=== PATIENT | female | born 1985 | race Two or more races ===

== ENCOUNTER 2016-11-02 16:24 | Emergency (ER) | payer BC ==
[~2016-11-02] VITALS: Ht 175.3 cm; Wt 81.6 kg
[2016-11-02] MEDS ORDERED: HYDROCODONE/APAP 5/325MG 1 EACH TABLET ONE (17:57)
[2016-11-02] MEDS ORDERED: HYDROCODONE/APAP 5/325MG 1 EACH TABLET PO ONE (18:00)
[2016-11-02 18:52] VITALS: BP 128/77
== END 2016-11-02 18:52 | disposition home or self-care (01) ==
LOC: ER 16:28
DX: S01.511A Laceration without foreign body of lip, initial encounter (principal); X58.XXXA Exposure to other specified factors, initial encounter; Y93.89 Activity, other specified; Y92.89 Other specified places as the place of occurrence of the external cause; Y99.8 Other external cause status; S02.609A Fracture of mandible, unspecified, initial encounter for closed fracture
CPT/HCPCS: 12015; 70486; 84703; 99284; A4606; A6402; Z7610